=== PATIENT | female | born 1935 | race Caucasian/White ===

== ENCOUNTER 2016-12-19 10:05 | Inpatient (IN) | payer OTHER, MEDICARE ==
[~2016-12-19 10:05] MED LIST: CILO100T PO; FURO1TAB93 PO; GLYB1TAB51 PO; LISI-590 PO; OMEP20CA5 PO; POTA-243 PO; TOPR100T15 PO; ZOCO40TA PO
[2016-12-19 10:11] VITALS: BP 225/100; PULSE 80; RESP 26; O2SAT 94
[2016-12-19] MEDS ORDERED: NITROGLYCERIN 0.4 MG SL 25 TABS/BTL SL ONE (10:15)
[2016-12-19] MEDS ORDERED: ALLO300T2 PO (10:26)
[2016-12-19] MEDS ORDERED: AMLO2.5T PO (10:26)
[2016-12-19] MEDS ORDERED: ATOR40TA16 PO (10:26)
[2016-12-19] MEDS ORDERED: ASPI81TA81 PO (10:26)
[2016-12-19] MEDS ORDERED: CILO100T PO (10:26)
[2016-12-19] MEDS ORDERED: PRIM50TA5 PO (10:26)
[2016-12-19] MEDS ORDERED: PRIL20TA2 PO (10:26)
[2016-12-19] MEDS ORDERED: METF850T PO (10:26)
[2016-12-19] MEDS ORDERED: BETH25TA2 PO (10:26)
[2016-12-19] MEDS ORDERED: METO100T PO (10:26)
[2016-12-19] MEDS ORDERED: LISI-515 PO (10:26)
[2016-12-19] MEDS ORDERED: FURO20TA PO (10:26)
[2016-12-19] MEDS ORDERED: ASPIRIN 325 MG TAB PO ONE (10:30)
[2016-12-19] MEDS: NITROGLYCERIN 0.4 MG SL 25 TABS/BTL SL SCH ×3 (10:34→10:41)
[2016-12-19 10:40] VITALS: BP 188/82; PULSE 71; RESP 22; O2SAT 95
[2016-12-19 10:48] LABS: AUTOMATED NEUTROPHIL # 14.6 TH/MM3 (1.8-7.7); BASOPHIL % 0.3 % (0.0-2.0); EOSINOPHIL # 0.3 TH/MM3 (0-0.4); HEMATOCRIT 34.6 % (35.0-46.0); LYMPH % 9.8 % (9.0-44.0); LYMPHOCYTE # 1.7 TH/MM3 (1.0-4.8); MEAN CELL VOLUME 101.5 FL (80.0-100.0); MEAN CORPUSCULAR HGB CONC 31.5 % (32.0-36.0); MONO % 3.2 % (0.0-8.0); NEUT % 84.7 % (16.0-70.0); PLATELET COUNT 183 TH/MM3 (150-450); RED BLOOD COUNT 3.41 MIL/MM3 (4.00-5.30); RED CELL DISTRIBUTION WIDTH 19.7 % (11.6-17.2); WHITE BLOOD COUNT 17.3 TH/MM3 (4.0-11.0)
--- NOTE | 2016-12-19 10:48 | RADRPT ---
EXAM DATE/TIME: 12/19/2016 10:17 [place] COMPARISON: No previous studies available for comparison. INDICATIONS : Chest pain MEDICAL HISTORY : Cardiovascular disease. Hypertension SURGICAL HISTORY : CABG. ENCOUNTER: Initial ACUITY: 1 day PAIN SCORE: 8/10 LOCATION: chest FINDINGS: The patient is status post sternotomy. The heart size is upper limits of normal. The lungs are grossl y clear. No effusion is seen. CONCLUSION: No acute disease. Valdez Flowers MD on December 19, 2016 at 10:45 Board Certified Radiologist. This report was verified electronically.
[2016-12-19 10:53] LABS: HEMO FLAGS AUTO DIFF
[2016-12-19 10:56] LABS: APTT (PATIENT) 27.1 SEC (24.3-30.1); INTERNATIONAL NORMALIZED RATIO 0.9 RATIO; PROTHROMBIN TIME - PATIENT 10.1 SEC (9.8-11.6)
--- NOTE | 2016-12-19 11:01 | PD ---
HPI Chief Complaint: Cardiac Complaint Time Seen by Provider: 10:17 Travel History International Travel<30 days: No Contact w/Intl Traveler<30days: No Traveled to known affect area: No History of Present Illness HPI 81yo F with PMH of CAD s/p CABG, CHF presents to the ED with c/o sob since 7am today. States she has been having intermittent left sided chest pain as well. Chest pain is worst with breathing and feels like someone hitting it. Associated with nausea. Denies any fever, vomiting, abdominal pain, focal weakness and numbness. Pt always have bilateral lower extremity swelling and did not take her lasix today. Swelling is about the same. PFSH Past Medical History Cancer: No Cardiovascular Problems: Yes High Cholesterol: Yes Congestive Heart Failure: Yes Coronary Artery Disease: Yes Diabetes: Yes Patient Takes Glucophage: Yes Diminished Hearing: No Glaucoma: No Hepatitis: No Hiatal Hernia: No Hypertension: Yes Respiratory: Yes Renal Failure: Yes (ckd) Thyroid Disease: No Past Surgical History Abdominal Surgery: No Cardiac Surgery: Yes (CABGX5) Ear Surgery: No Endocrine Surgery: No Eye Surgery: Yes (BILAT. CATARACT SX, BILAT BLEPH.) Genitourinary Surgery: Yes (FUSED BLADDER AND KIDNEY,) Gynecologic Surgery: Yes (HYSTERECTOMY,) Oral Surgery: No Thoracic Surgery: No Other Surgery: Yes Social History Alcohol Use: No Tobacco Use: Yes (STOPPED 6 YR. AGO, WAS SMOKING 1 PPD) Substance Use: No Allergies-Medications (Allergen,Severity, Reaction): Coded Allergies: codeine (Unverified Allergy, Severe, Hives, 11/16/16) RASH hydroxyzine (Unverified Allergy, Severe, HALLUCINATIONS, 11/16/16) Uncoded Allergies: CODEINE=RASH (Allergy, Unknown, 12/11/02) Reported Meds & Prescriptions Reported Meds & Active Scripts Active Reported Atorvastatin (Atorvastatin Calcium) 40 Mg Tab 40 Mg PO HS Amlodipine (Amlodipine Besylate) 2.5 Mg Tab 2.5 Mg PO DAILY Aspir-81 (Aspirin) 81 Mg Tabdr 81 Mg PO DAILY Primidone 50 Mg Tab 50 Mg PO BID Cilostazol 100 Mg Tab 100 Mg PO DAILY Allopurinol 300 Mg Tab 300 Mg PO DAILY Bethanechol 25 Mg Tab 37.5 Mg PO QID Lisinopril 20 Mg Tab 20 Mg PO DAILY Metformin (Metformin HCl) 850 Mg Tab 850 Mg PO BIDPC With meals Metoprolol Tartrate 100 Mg Tab 100 Mg PO BID Prilosec (Omeprazole Magnesium) 20 Mg Tab 20 Mg PO DAILY Furosemide 20 Mg Tab 20 Mg PO BID Review of Systems Except as stated in HPI: all other systems reviewed are Neg Physical Exam Narrative GENERAL: 81yo F in moderate distress. SKIN: Focused skin assessment warm/dry. HEAD: Atraumatic. Normocephalic. EYES: Pupils equal and round. No scleral icterus. No injection or drainage. ENT: No nasal bleeding or discharge. Mucous membranes pink and moist. NECK: Trachea midline. No JVD. CARDIOVASCULAR: Regular rate and rhythm. No murmur appreciated. RESPIRATORY: +accessory muscle use. Bilateral basilar crackles. GASTROINTESTINAL: Abdomen soft, non-tender, nondistended. No rebound tenderness or guarding. MUSCULOSKELETAL: No obvious deformities. No clubbing. No cyanosis. +Bilateral lower ext edema. NEUROLOGICAL: Awake and alert. No obvious cranial nerve deficits. Motor grossly within normal limits. Normal speech. PSYCHIATRIC: Appropriate mood and affect; insight and judgment normal. Data Data Last Documented VS Vital Signs Date Time Temp Pulse Resp B/P (MAP) Pulse Ox O2 Delivery O2 Flow Rate FiO2 12/19/16 10:40 71 22 188/82 (117) 95 Nasal Cannula 3.00 Orders Orders Nitroglycerin Sl (Nitrostat Sl) (12/19/16 10:15) Electrocardiogram (12/19/16 10:16) Basic Metabolic Panel (Bmp) (12/19/16 10:16) B-Type Natriuretic Peptide (12/19/16 10:16) Complete Blood Count With Diff (12/19/16 10:16) Magnesium (Mg) (12/19/16 10:16) Prothrombin Time / Inr (Pt) (12/19/16 10:16) Act Partial Throm Time (Ptt) (12/19/16 10:16) Troponin I (12/19/16 10:16) Chest, Single Ap (12/19/16 10:16) Aspirin (Aspirin) (12/19/16 10:30) Nitroglycerin Sl (Nitrostat Sl) (12/19/16 10:30) Furosemide Inj (Lasix Inj) (12/19/16 11:15) Morphine Inj (Morphine Inj) (12/19/16 11:30) Blood Culture (12/19/16 11:46) Lactic Acid Sepsis Protocol (12/19/16 11:46) Admit Order (Ed Use Only) (12/19/16 12:10) Labs Laboratory Tests Test 12/19/16 10:30 12/19/16 12:10 White Blood Count 17.3 TH/MM3 Red Blood Count 3.41 MIL/MM3 Hemoglobin 10.9 GM/DL Hematocrit 34.6 % Mean Corpuscular Volume 101.5 FL Mean Corpuscular Hemoglobin 32.0 PG Mean Corpuscular Hemoglobin Concent 31.5 % Red Cell Distribution Width 19.7 % Platelet Count 183 TH/MM3 Mean Platelet Volume 11.7 FL Neutrophils (%) (Auto) 84.7 % Lymphocytes (%) (Auto) 9.8 % Monocytes (%) (Auto) 3.2 % Eosinophils (%) (Auto) 2.0 % Basophils (%) (Auto) 0.3 % Neutrophils # (Auto) 14.6 TH/MM3 Lymphocytes # (Auto) 1.7 TH/MM3 Monocytes # (Auto) 0.6 TH/MM3 Eosinophils # (Auto) 0.3 TH/MM3 Basophils # (Auto) 0.0 TH/MM3 CBC Comment AUTO DIFF Differential Total Cells Counted 100 Neutrophils % (Manual) 73 % Band Neutrophils % 13 % Lymphocytes % 10 % Monocytes % 3 % Eosinophils % 1 % Neutrophils # (Manual) 14.9 TH/MM3 Differential Comment FINAL DIFF MANUAL Toxic Vacuolation PRESENT Platelet Estimate NORMAL Platelet Morphology Comment ENLARGED Keratocytes OCC Prothrombin Time 10.1 SEC Prothromb Time International Ratio 0.9 RATIO Activated Partial Thromboplast Time 27.1 SEC Blood Urea Nitrogen 28 MG/DL Creatinine 1.24 MG/DL Random Glucose 114 MG/DL Calcium Level 8.9 MG/DL Magnesium Level 1.6 MG/DL Sodium Level 136 MEQ/L Potassium Level 5.4 MEQ/L Chloride Level 107 MEQ/L Carbon Dioxide Level 22.2 MEQ/L Anion Gap 7 MEQ/L Estimat Glomerular Filtration Rate 42 ML/MIN Troponin I LESS THAN 0.02 NG/ML B-Type Natriuretic Peptide 157 PG/ML Lactic Acid Level 1.8 mmol/L MDM Medical Decision Making Medical Screen Exam Complete: Yes Emergency Medical Condition: Yes Interpretation(s) EKG: NSR 81bpm. Normal axis. No ST segment elevation or depression. Differential Diagnosis CHF exacerbation vs. ACS vs. pneumonia Narrative Course 81yo F with CHF, CAD here with sob and chest pain today. Clinically, impression is CHF exacerbation as pt is hypertensive and has crackles in her lungs. States she took her aspirin. Pt given sublingual nitro PRN chest pain and BP improved as well as her chest pain. Jet Blade Polisher is Dr. Rfuf. Pt is suppose to be on lasix 20mg BID and did not take her lasix today. Pt given lasix 40mg IV. Pt also given morphine 2mg IV for chest pain since she was still have chest pain and said morphine helped before. Labs reviewed, leukocytosis at 17.3, bandemia at 13%. BNP is only 157. Troponin negative. K : 5.4 but slightly hemolyzed. Lactic acid normal at 1.8. CXR showed no acute disease. Pt has high risk for ACS and will admit pt to hospitalist for chest pain and further work up of possible infection with bandemia present. I discussed with Dr. Faria who accepted the patient and initially asked me to order CT angio but later changed his mind and cancelled it. Diagnosis Primary Impression: Chest pain Qualified Codes: R07.9 - Chest pain, unspecified Admitting Information Admitting Physician Requests: it Lydia Bass DO Dec 19, 2016 11:01
[2016-12-19 11:05] LABS: ANION GAP 7 MEQ/L (5-15); BICARBONATE 22.2 MEQ/L (21.0-32.0); BLOOD UREA NITROGEN 28 MG/DL (7-18); CHLORIDE 107 MEQ/L (98-107); GLOMERULAR FILTRATION RATE 42 ML/MIN (>89); MAGNESIUM 1.6 MG/DL (1.5-2.5); POTASSIUM 5.4 MEQ/L (3.5-5.1); SODIUM (NA) 136 MEQ/L (136-145)
[2016-12-19] MEDS ORDERED: FUROSEMIDE 40 MG/4 ML VIAL IV PUSH ONE (11:15)
[2016-12-19 11:26] LABS: BANDS 13 % (0-6); EOSINOPHILS 1 % (0-4); NEUTROPHIL # MANUAL DIFF 14.9 TH/MM3 (1.8-7.7); POLYS (SEG NEUTROPHILS) 73 % (16-70); WBC DIFF SAMPLE 100
[2016-12-19 11:27] LABS: PLATELET ESTIMATE SMEAR NORMAL (NORMAL); PLATELET MORPHOLOGY ENLARGED (NORMAL); TOXIC VACUOLATION PRESENT (NONE SEEN)
[2016-12-19 11:28] LABS: KERATOCYTES OCC (NORMAL); SCAN/DIFF FINAL DIFF MANUAL
[2016-12-19] MEDS ORDERED: MORPHINE SULFATE 4 MG/ML INJ IV PUSH ONE (11:30)
--- NOTE | 2016-12-19 12:40 | EKG ---
Date Performed: 12/19/2016 Time Performed: 10:21:04 PTAGE: 81 years EKG: Sinus rhythm NORMAL ECG NO PREVIOUS TRACING DOCTOR: Romel Rutledge Interpretating Date/Time 12/19/2016 12:39:13
[2016-12-19] MEDS ORDERED: NALOXONE HCL 0.4 MG/ML AMP IV PUSH PRN (12:45)
[2016-12-19] MEDS ORDERED: BISACODYL 10 MG SUPP RECTAL PRN (13:00)
[2016-12-19] MEDS ORDERED: MAGNESIUM HYDROXIDE SUSP 30 ML CUP PO PRN (13:00)
[2016-12-19] MEDS ORDERED: LACTULOSE SYRUP 20 GM/30 ML CUP PO PRN (13:00)
[2016-12-19] MEDS ORDERED: SODIUM CHLORIDE 0.9% FLUSH 10 ML FLUSH IV FLUSH PRN (13:00)
[2016-12-19] MEDS ORDERED: SENNOSIDES 8.6 MG TAB PO PRN (13:00)
[2016-12-19] MEDS ORDERED: ACETAMINOPHEN 325 MG TAB PO PRN (13:00)
[2016-12-19] MEDS ORDERED: ONDANSETRON HCL 4 MG/2 ML VIAL IVP PRN (13:00)
--- NOTE | 2016-12-19 13:30 | HHI.HP ---
[facility]ician Tk Rendon MD Admission Diagnosis Chest pain Diagnoses: (1) Chest pain (2) Diabetes mellitus (3) Hypertension Travel History International Travel<30 Days: No Contact w/Intl Traveler <30 Da: No Traveled to Known Affected Are: No Sepsis Criteria SIRS Criteria (2 or more): RR > 20 or PaCO2 < 32, WBC > 64368, < 4000 or > 10 % bands Sepsis Criteria (SIRS+source): Infect source susp/known History of Present Illness Written by Steffany Mariano, acting as scribe for Dr. Faria on 12/19/16 at 13:16. This note was transcribed by scribe DANAY Brink. I, Dr. Patricio Faria personally performed the history, physical exam, and medical decision making; and confirmed the accuracy of the information in the transcribed note. Authenticated by Dr. Patricio Faria on 12/19/16 at 22:38. Ms. Gustafson is an 81-year-old female patient with a known medical history of hypertension, type 2 diabetes mellitus, and CABG x 5 who presented to the ED with complaints of chest discomfort. 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 She says this discomfort was pressure-like in nature, intermittent, denies any radiation of pain to neck or back, denies any associate diaphoresis, and admits to associated nausea and vomiting. Does state that she has been experiencing similar chest discomfort intermittently for the past 2 days, with it coming and going without any recognizable aggravating or relieving factors. Patient states she left work this morning, took her usual medications and laid down to rest. While resting she complaint of continued chest discomfort characterized by a "choking sensation" and "inability to breath ". She states she called her granddaughter who brought her to the ED. She also states that she has noticed several episodes of dyspnea for the past 2 weeks. This dyspnea usually occurs at rest without reason. Denies any recent illness including fever, chills, cough, abdominal pain, diarrhea. Does state she believes she passed a kidney stone within the past week, complaints of burning and pain on urination. Review of Systems Constitutional: DENIES: Fever, Chills, Dizziness Eyes: DENIES: Blurred vision, Vision loss Respiratory: COMPLAINS OF: Shortness of breath, DENIES: Cough Cardiovascular: COMPLAINS OF: Chest pain, Palpitations, Lower Extremity Edema Gastrointestinal: COMPLAINS OF: Nausea, Vomiting, DENIES: Abdominal pain, Constipation, Diarrhea Genitourinary: COMPLAINS OF: Dysuria Except as stated in HPI: all other systems reviewed are Neg Past Family Social History Past Medical History Type 2 diabetes mellitus Hypertension, chronic Arthritis Dyslipidemia CHF CAD CKD Past Surgical History CABG x 5 Bilateral cataracts Hysterectomy Kidney/bladder surgery Back surgery Knee replacement Reported Medications Active Reported Atorvastatin (Atorvastatin Calcium) 40 Mg Tab 40 Mg PO HS Amlodipine (Amlodipine Besylate) 2.5 Mg Tab 2.5 Mg PO DAILY Aspir-81 (Aspirin) 81 Mg Tabdr 81 Mg PO DAILY Primidone 50 Mg Tab 50 Mg PO BID Cilostazol 100 Mg Tab 100 Mg PO DAILY Allopurinol 300 Mg Tab 300 Mg PO DAILY Bethanechol 25 Mg Tab 37.5 Mg PO QID Lisinopril 20 Mg Tab 20 Mg PO DAILY Metformin (Metformin HCl) 850 Mg Tab 850 Mg PO BIDPC With meals Metoprolol Tartrate 100 Mg Tab 100 Mg PO BID Prilosec (Omeprazole Magnesium) 20 Mg Tab 20 Mg PO DAILY Furosemide 20 Mg Tab 20 Mg PO BID Allergies: Coded Allergies: codeine (Unverified Allergy, Severe, Hives, 11/16/16) RASH hydroxyzine (Unverified Allergy, Severe, HALLUCINATIONS, 11/16/16) Uncoded Allergies: CODEINE=RASH (Allergy, Unknown, 12/11/02) Active Ordered Medications Current Medications Medications (Trade) Dose Ordered Sig/Reagan Route Start Time Stop Time Status Last Admin (NS Flush) 2 ml UNSCH PRN IV FLUSH 12/19/16 13:00 (NS Flush) 2 ml BID IV FLUSH 12/19/16 21:00 (Tylenol) 650 mg Q4H PRN PO 12/19/16 13:00 (Zofran Inj) 4 mg Q6H PRN IVP 12/19/16 13:00 (Narcan Inj) 0.4 mg UNSCH PRN IV PUSH 12/19/16 12:45 (Misa-Colace) 1 tab BID PO 12/19/16 21:00 (Milk Of Magnesia Liq) 30 ml Q12H PRN PO 12/19/16 13:00 (Senokot) 17.2 mg Q12H PRN PO 12/19/16 13:00 (Dulcolax Supp) 10 mg DAILY PRN RECTAL 12/19/16 13:00 (Lactulose Liq) 30 ml DAILY PRN PO 12/19/16 13:00 Family History Maternal medical history significant for CHF. Paternal medical history significant for lung cancer. Sister of ovarian cancer. Brother of lung cancer. Social History Denies any current use of tobacco or alcohol. She used to smoke 1 PPD but quit about 6 years ago. Physical Exam Vital Signs Vital Signs Date Time Temp Pulse Resp B/P (MAP) Pulse Ox O2 Delivery O2 Flow Rate FiO2 12/19/16 10:40 71 22 188/82 (117) 95 Nasal Cannula 3.00 12/19/16 10:15 96 Nasal Cannula 3.00 12/19/16 10:11 80 26 225/100 (141) 94 Physical Exam GENERAL: This is a well-nourished, well-developed female patient, lying in bed on 2 L NC in no apparent distress. SKIN: No ecchymoses or lesions. Warm and dry. Left lower extremity erythema noted, no open skin, no drainage, warm to touch, mild trace non pitting edema. HEENT: Atraumatic. Normocephalic.Pupils equal round and reactive. Extraocular motions intact. No scleral icterus. No injection or drainage. Nose without bleeding. Uvula midline. Airway patent. NECK: Trachea midline. No JVD or lymphadenopathy. Supple. CARDIOVASCULAR: Regular rate and rhythm. No gallops, or rubs. No murmur appreciated. RESPIRATORY: Clear to auscultation. Breath sounds equal bilaterally. No wheezes , rales, or rhonchi. GASTROINTESTINAL: Abdomen soft, non-tender, nondistended. No guarding. MUSCULOSKELETAL: Extremities without clubbing, cyanosis, or edema. No joint tenderness, effusion, or edema noted. NEUROLOGICAL: Awake and alert. Cranial nerves II through XII intact. Motor and sensory grossly within normal limits. Five out of 5 muscle strength in all muscle groups. Normal speech. Laboratory Laboratory Tests Test 12/19/16 10:30 12/19/16 12:10 White Blood Count 17.3 Red Blood Count 3.41 Hemoglobin 10.9 Hematocrit 34.6 Mean Corpuscular Volume 101.5 Mean Corpuscular Hemoglobin 32.0 Mean Corpuscular Hemoglobin Concent 31.5 Red Cell Distribution Width 19.7 Platelet Count 183 Mean Platelet Volume 11.7 Neutrophils (%) (Auto) 84.7 Lymphocytes (%) (Auto) 9.8 Monocytes (%) (Auto) 3.2 Eosinophils (%) (Auto) 2.0 Basophils (%) (Auto) 0.3 Neutrophils # (Auto) 14.6 Lymphocytes # (Auto) 1.7 Monocytes # (Auto) 0.6 Eosinophils # (Auto) 0.3 Basophils # (Auto) 0.0 CBC Comment AUTO DIFF Differential Total Cells Counted 100 Neutrophils % (Manual) 73 Band Neutrophils % 13 Lymphocytes % 10 Monocytes % 3 Eosinophils % 1 Neutrophils # (Manual) 14.9 Differential Comment FINAL DIFF MANUAL Toxic Vacuolation PRESENT Platelet Estimate NORMAL Platelet Morphology Comment ENLARGED Keratocytes OCC Prothrombin Time 10.1 Prothromb Time International Ratio 0.9 Activated Partial Thromboplast Time 27.1 Blood Urea Nitrogen 28 Creatinine 1.24 Random Glucose 114 Calcium Level 8.9 Magnesium Level 1.6 Sodium Level 136 Potassium Level 5.4 Chloride Level 107 Carbon Dioxide Level 22.2 Anion Gap 7 Estimat Glomerular Filtration Rate 42 Troponin I LESS THAN 0.02 B-Type Natriuretic Peptide 157 Lactic Acid Level 1.8 Date/Time Source Procedure Growth Status 12/19/16 12:15 Blood Peripheral Aerobic Blood Culture Pending Received 12/19/16 12:15 Blood Peripheral Anaerobic Blood Culture Pending Received Result Diagram: 12/19/16 1030 12/19/16 1030 Imaging Last Impressions Chest X-Ray 12/19/16 1016 Signed Impressions: Service Date/Time: Monday, December 19, 2016 10:17 - CONCLUSION: No acute disease. Valdez Flowers MD Septic Shock Reassessment Heart: Regular rate and rhythm Lungs: Clear Skin: Warm Peripheral Pulses: Bounding Right Radial Bounding Left Radial Capillary Refill: Brisk, <2 seconds Caprini VTE Risk Assessment Caprini VTE Risk Assessment: Mod/High Risk (score >= 2) Caprini Risk Assessment Model Point Value = 1 Point Value = 2 Point Value = 3 Point Value = 5 Age 41-60 Minor surgery BMI > 25 kg/m2 Swollen legs Varicose veins or History of unexplained or recurrent spontaneous Oral contraceptives or hormone replacement Sepsis (< 1 month) Serious lung disease, including pneumonia (< 1 month) Abnormal pulmonary function Acute myocardial infarction Congestive heart failure (< 1 month) History of inflammatory bowel disease Medical patient at bed rest Age 61-74 Arthroscopic surgery Major open surgery (> 45 min) Laparoscopic surgery (> 45 min) Malignancy Confined to bed (> 72 hours) Immobilizing plaster cast Central venous access Age >= 75 History of VTE Family history of VTE Factor V Leiden Prothrombin [id number] Lupus anticoagulant Anticardiolipin antibodies Elevated serum homocysteine Heparin-induced thrombocytopenia Other congenital or acquired thrombophilia Stroke (< 1 month) Elective arthroplasty Hip, pelvis, or leg fracture Acute spinal cord injury (< 1 month) Prophylaxis Regimen Total Risk Factor Score Risk Level Prophylaxis Regimen 0-1 Low Early ambulation 2 Moderate Order ONE of the following: *Sequential Compression Device (SCD) *Heparin 5000 units SQ BID 3-4 Higher Order ONE of the following medications: *Heparin 5000 units SQ TID *Enoxaparin/Lovenox 40 mg SQ daily (WT < 150 kg, CrCl > 30 mL/min) *Enoxaparin/Lovenox 30 mg SQ daily (WT < 150 kg, CrCl > 10-29 mL/min) *Enoxaparin/Lovenox 30 mg SQ BID (WT < 150 kg, CrCl > 30 mL/min) AND/OR *Sequential Compression Device (SCD) 5 or more Highest Order ONE of the following medications: *Heparin 5000 units SQ TID (Preferred with Epidurals) *Enoxaparin/Lovenox 40 mg SQ daily (WT < 150 kg, CrCl > 30 mL/min) *Enoxaparin/Lovenox 30 mg SQ daily (WT < 150 kg, CrCl > 10-29 mL/min) *Enoxaparin/Lovenox 30 mg SQ BID (WT < 150 kg, CrCl > 30 mL/min) AND *Sequential Compression Device (SCD) Assessment and Plan Problem List: (1) Accelerated hypertension ICD Code: I10 - Essential (primary) hypertension (2) SCAR (acute kidney injury) ICD Code: N17.9 - Acute kidney failure, unspecified (3) UTI (urinary tract infection) ICD Code: N39.0 - Urinary tract infection, site not specified Assessment and Plan Ms. Gustafson is an 81-year-old female patient with a known medical history of hypertension, type 2 diabetes mellitus, and CABG x 5 who presented to the ED with complaints of chest discomfort. EKG on presentation, NSR, HR 81, no ST segment changes, no arrhythmias. Given Morphine IV given x 1, Aspirin 325 mg PO x 1, Lasix 40 mg IV x 1, sublingual nitro x 1 in ED with improved chest pain. Lead Business Analyst is Dr. Ruff. Leukocytosis on presentation, 17.3. Probable unstable angina History of chronic congestive heart failure, unknown type History of CAD with CABG x 5 vessel bypass Hyperlipidemia - Initial troponin 0.02. Will follow serial troponin for ruling out purposes. - Morphine IV given x 1 in ED. Aspirin 325 mg PO x 1 given in ED. Lasix 40 mg IV x 1 given in ED. - EKG reviewed showing normal sinus rhythm, no ST changes noted, no arrhythmias present. Will order serial EKGs. Follow. - CXR reviewed with no acute disease. - Will obtain 2-D ECHO. No recent ECHO in EMR. Unknown type of CHF. Follow. BNP ordered, 157. - Consult placed to cardiology, Dr. Ruff known to patient. Appreciate input. - Will obtain lipid profile, continue home Atorvastatin. Follow. - Resume home aspirin, cilostazol, primidone and furosemide. - Continue supplemental O2 to keep sats > 92%. - CTA initially ordered in ED due to complaints of dyspnea. Will cancel due to possibility of patient undergoing cardiac catheterization depending on cardiology input. With presence of SCAR will also limit amount of contrast. Accelerated hypertension - BP elevated, systolic in the 180's-200's. Resume home BP meds, Lisinopril, amlodipine. Monitor blood pressure closely. Sepsis (WBC 17.3K, Resp 26, suspected infection UTI and/or left lower ext cellulitis). - Leukocytosis with mild bandemia suspect secondary to possible left lower leg cellulitis vs UTI - WBC 17.3 on presentation. Afebrile. Lactic acid 1.8. - Blood cultures ordered, sent and pending. Follow. - UA ordered and pending. Follow. - Follow clinically. Acute kidney injury: Creatinine 1.2 on presentation. Unknown baseline creatinine. Ensure hydration, place on NS @ 100 ml/hr. Will recheck BMP in am. Follow. Hyperkalemia: K 5.4 on presentation. Will give one time dose of concentrated Albuterol 10 mg. Monitor response. Follow BMP. Type 2 diabetes mellitus, chronic: Will place on ACCU checks ACHS, sliding scale , cover as needed. Monitor closely. Probable left lower extremity cellulitis: Rocephin started for UTI coverage, will also cover possible cellulitis. Will continue to monitor. Urinary tract infection: Dysuria complaints. Will order a UA with culture if indicated. Follow. Will start Rocephin IV empirically. Follow C&S Full code. [facility] 2 Midnight Certification Type: Admission for Inpatient Services Order for Inpatient Services The services are ordered in accordance with Medicare regulations or non- Medicare payer requirements, as applicable. In the case of services not specified as inpatient-only, they are appropriately provided as inpatient services in accordance with the 2-midnight benchmark. Estimated LOS (days): 2 2 days is the estimated time the patient will need to remain in the hospital, assuming treatment plan goals are met and no additional complications. Post-Hospital Plan: Not yet determined Problem Qualifiers (1) Chest pain: Qualified Codes: R07.9 - Chest pain, unspecified Steffany Mariano Dec 19, 2016 13:30 Puneet Faria DO Dec 19, 2016 22:48
[2016-12-19] MEDS ORDERED: RESP: ALBUTEROL CONC 2.5 MG/0.5 ML NEB NEB ONE (13:45)
[2016-12-19 13:52] VITALS: TEMP 98.1
[2016-12-19] MEDS ORDERED: DEXTROSE 50% IN WATER 50 ML VIAL(D50) IV PRN (14:30)
[2016-12-19] MEDS ORDERED: GLUCAGON 1 MG/ML VIAL OTHER PRN (14:30)
[2016-12-19] MEDS ORDERED: PILL SPLITTER OTHER PRN (15:00)
[2016-12-19 15:43] VITALS: O2SAT 96
--- NOTE | 2016-12-19 15:52 | MB ---
cc: REESE SUE ALAN S. M.D. BARTHOLOMEW, BETH A. MD DATE OF CONSULTATION: 12/19/2016. I have reviewed office and hospital records. The patient is a pleasant 81-year-old woman I am seeing for chest pain and shortness of breath. The patient had quintuple bypass surgery in 1998 and apparently had a stent to the vein graft to the RCA in 2001. SPECT nuclear 10/15 was normal. An echocardiogram showed normal LV function with mild MR / TR. The patient notes mild stable dyspnea on exertion for the last two months. She also has chronic moderate bilateral calf claudication. She does note over the last two months that she is having increasing episodes of substernal tightness which usually lasts minutes and today may have lasted longer. It is not necessarily pleuritic or positional and can come on at any time, particularly after exertion. She also notes some localized anterior chest tenderness. She has no other cardiac symptomatology. Of note is the fact that she has had hematuria for the last two to three weeks. PAST MEDICAL HISTORY: 1. Hypertension. 2. Diabetes. 3. Chronic kidney disease IV. 4. Hyperlipidemia. 5. A 3.1 cm abdominal aortic aneurysm. 6. Peripheral vascular disease with bilateral occlusions of the superficial femoral arteries. 7. Moderate right internal carotid stenosis. 8. Gout. 9. Esophageal reflux. 10. Monoclonal gammopathy. 11. COPD. 12. Right knee replacement. 13. Hysterectomy. 14. Lumbar back surgery. 15. Appendectomy. 16. Cholecystectomy. 17. Bilateral cataracts. ALLERGIES: 1. CODEINE. 2. HYDROXYZINE. 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 She is a former smoker and does not drink. FAMILY HISTORY: Noncontributory. MEDICATION LIST: Reviewed. She has taken them this morning. At this point in time, the patient has minimal left anterior chest tenderness but no other symptoms. EKG shows sinus rhythm and is normal. Chest x-ray with no acute disease. LAB WORK: White count elevated at 17.3 with macrocytosis. There is mild anemia with hematocrit of 34.6, platelet count normal. PT / PTT normal. Potassium 5.4, creatinine 1.24, glucose 114. Troponin negative. BNP minimally elevated at 157. PHYSICAL EXAMINATION: GENERAL: On exam, she is significantly hypertensive but this is improving. VITAL SIGNS: Afebrile. SKIN: There are no xanthelasma and oropharyngeal mucosa normal. CHEST: Clear. CARDIOVASCULAR: JVD normal. S1, S2 with a 2/6 early peaking systolic ejection murmur at the base. ABDOMEN: Benign except for an increased abdominal aortic pulsation. EXTREMITIES: No cyanosis, clubbing or edema. PULSES: Carotids with soft bilateral bruits. Radials 1 to 2+. Femorals 1 to 2+ with bilateral bruits. Pedals trace. NEUROLOGIC: She was not ambulated. PROBLEM LIST: 1. Chest discomfort. The patient has some localized tenderness but I am concerned with her risk factors and the fact that there is an exertional component that this is unstable angina. 2. Severe hypertension. 3. Diabetes. 4. Hyperlipidemia. 5. Heart murmur. 6. Peripheral vascular and carotid disease. 7. Abdominal aortic aneurysm. 8. Chronic kidney disease IV. 9. Monoclonal gammopathy with anemia. 10. Elevated white count. RECOMMENDATIONS: 1. She is being started on low-dose Lovenox which at this point in time is appropriate given her hematuria and anemia. 2. Will start her on topical nitrates. We will continue home medication and certainly her blood pressure risk factors need to be aggressively treated 3. Echocardiogram to assess ventricular and valvular function. 4. Low cholesterol / salt / diabetic diet. 5. The patient may need catheterization to better evaluate her coronary status. Further recommendations will be followed by Dr. Ruff tomorrow. All questions have been answered. I have also stated she should not be working as a security supervisor at this point in time given her age and multiple medical issues. MD EDELMIRA Mcdonald/ROSA /2:44 PM /3:38 PM
[2016-12-19] MEDS: NITROGLYCERIN 2% OINT 1 GM PACKET TOPICAL SCH ×2 (16:00→16:50)
[2016-12-19] MEDS: SODIUM CHLOR 0.9% 1000 ML INJ 1,000 ML IV SCH (16:00)
[2016-12-19] MEDS: cefTRIAXone INJ 1,000 MG in SODIUM CHLORIDE 0.9% INJ 100 ML IV SCH (16:00)
[2016-12-19] MEDS: ENOXAPARIN SODIUM 40 MG/0.4 ML SYRINGE SQ SCH (16:00)
[2016-12-19 16:23] VITALS: BP 168/74
[2016-12-19] MEDS: INSULIN ASPART SUPPLEMENTAL SCALE SQ SCH ×2 (17:00→21:18)
[2016-12-19] MEDS: BETHANECHOL CHL 25 MG TAB PO SCH ×2 (18:00→21:17)
[2016-12-19] MEDS: FUROSEMIDE 20 MG TAB PO SCH (18:00)
--- NOTE | 2016-12-19 19:12 | EKG ---
Date Performed: 12/19/2016 Time Performed: 18:43:34 PTAGE: 81 years EKG: Sinus rhythm WITH SHORT CT INTERVAL NONSPECIFIC T-WAVE ABNORMALITY BORDERLINE ECG PREVIOUS TRACING : 12/19/2016 15.03 No significant change from previous tracing noted. DOCTOR: Romel Rutledge Interpretating Date/Time 12/19/2016 19:10:24
--- NOTE | 2016-12-19 19:14 | EKG ---
Date Performed: 12/19/2016 Time Performed: 15:03:25 PTAGE: 81 years EKG: Sinus rhythm NONSPECIFIC T-WAVE ABNORMALITY BORDERLINE ECG PREVIOUS TRACING : 12/19/2016 10.21 No significant change from previous tracing noted. DOCTOR: Romel Rutledge Interpretating Date/Time 12/19/2016 19:13:06
[2016-12-19 20:00] VITALS: BP 152/65; PULSE 88; PULSE 90; RESP 20; TEMP 97.7; O2SAT 95
[2016-12-19] MEDS: SODIUM CHLORIDE 0.9% FLUSH 10 ML FLUSH IV FLUSH SCH (21:00)
[2016-12-19] MEDS: ATORVASTATIN 40 MG TAB PO SCH (21:17)
[2016-12-19] MEDS: METOPROLOL TARTRATE 100 MG TAB PO SCH (21:17)
[2016-12-19] MEDS: DOCUSATE SODIUM 50 MG/SENNA 8.6 MG TAB PO SCH (21:18)
[2016-12-19] MEDS: PRIMIDONE 50 MG TAB PO SCH (21:44)
[2016-12-19 22:08] LABS: POTASSIUM 3.8 MEQ/L (3.5-5.1)
[2016-12-20] VITALS (7 sets, daily range): BP systolic 139–162; BP diastolic 60–98; PULSE 61–80; RESP 18–21; TEMP 96.8–98.3; O2SAT 92–98
[2016-12-20] MEDS: NITROGLYCERIN 2% OINT 1 GM PACKET TOPICAL SCH ×5 (00:03→18:00)
[2016-12-20] MEDS: SODIUM CHLOR 0.9% 1000 ML INJ 1,000 ML IV SCH ×3 (00:03→21:13)
--- NOTE | 2016-12-20 07:56 | PD.CARD.PN ---
Subjective Subjective Remarks PT still with mild SHOB Objective Medications Current Medications Medications (Trade) Dose Ordered Sig/Reagan Route Start Time Stop Time Status Last Admin (NS Flush) 2 ml UNSCH PRN IV FLUSH 12/19/16 13:00 (NS Flush) 2 ml BID IV FLUSH 12/19/16 21:00 (Tylenol) 650 mg Q4H PRN PO 12/19/16 13:00 (Zofran Inj) 4 mg Q6H PRN IVP 12/19/16 13:00 (Narcan Inj) 0.4 mg UNSCH PRN IV PUSH 12/19/16 12:45 (Misa-Colace) 1 tab BID PO 12/19/16 21:00 12/19/16 21:18 (Milk Of Magnesia Liq) 30 ml Q12H PRN PO 12/19/16 13:00 (Senokot) 17.2 mg Q12H PRN PO 12/19/16 13:00 (Dulcolax Supp) 10 mg DAILY PRN RECTAL 12/19/16 13:00 (Lactulose Liq) 30 ml DAILY PRN PO 12/19/16 13:00 Ceftriaxone Sodium 1000 mg/ Sodium Chloride 100 ml @ 200 mls/hr Q24H IV 12/19/16 16:00 12/19/16 16:00 (D50w (Vial) Inj) 50 ml UNSCH PRN IV 12/19/16 14:30 (Glucagon Inj) 1 mg UNSCH PRN OTHER 12/19/16 14:30 (NovoLOG SUPPLEMENTAL SCALE) 1 ACHS SLIDING SCALE SQ 12/19/16 17:00 12/19/16 21:18 Sodium Chloride 1,000 ml @ 100 mls/hr Q10H IV 12/19/16 14:30 12/20/16 00:03 (Lovenox Inj) 40 mg Q24H SQ 12/19/16 15:00 12/19/16 16:00 (Nitroglycerin 2% Oint) 1 inch Q6HR TOPICAL 12/19/16 14:45 12/20/16 00:03 (Norvasc) 2.5 mg DAILY PO 12/20/16 09:00 (Ecotrin Ec) 81 mg DAILY PO 12/20/16 09:00 (Lipitor) 40 mg HS PO 12/19/16 21:00 12/19/16 21:17 (Urecholine) 37.5 mg QID PO 12/19/16 18:00 12/19/16 21:17 (Pletal) 100 mg DAILY PO 12/20/16 09:00 (Lasix) 20 mg BID@0900,1800 PO 12/19/16 18:00 12/19/16 18:00 (Prinivil) 20 mg DAILY PO 12/20/16 09:00 (Lopressor) 100 mg BID PO 12/19/16 21:00 12/19/16 21:17 (Mysoline) 50 mg BID PO 12/19/16 21:00 12/19/16 21:44 (Protonix) 20 mg DAILY PO 12/20/16 09:00 (Pill Splitter) 1 ea UNSCH PRN OTHER 12/19/16 15:00 Vital Signs / I&O Vital Signs Date Time Temp Pulse Resp B/P (MAP) Pulse Ox O2 Delivery O2 Flow Rate FiO2 12/20/16 04:00 Nasal Cannula 3.00 12/20/16 04:00 97.3 64 20 146/71 (96) 97 12/20/16 00:00 97.3 65 18 139/60 (86) 97 12/20/16 00:00 Nasal Cannula 3.00 12/19/16 20:00 97.7 90 20 152/65 (94) 95 12/19/16 20:00 88 12/19/16 20:00 Nasal Cannula 3.00 12/19/16 16:23 84 20 168/74 (105) 97 12/19/16 15:43 96 Nasal Cannula 3.00 12/19/16 13:52 98.1 12/19/16 12:39 Nasal Cannula 3.00 12/19/16 10:40 71 22 188/82 (117) 95 Nasal Cannula 3.00 12/19/16 10:15 96 Nasal Cannula 3.00 12/19/16 10:11 80 26 225/100 (141) 94 I/O 12/19/16 12/19/16 12/19/16 12/20/16 12/20/16 12/20/16 07:00 15:00 23:00 07:00 15:00 23:00 Intake Total 100 ml 220 ml Output Total 1575 ml Balance 100 ml -1355 ml Intake Oral 220 ml IV Total 100 ml Output Urine Total 1575 ml Physical Exam Current Medications Medications (Trade) Dose Ordered Sig/Reagan Route Start Time Stop Time Status Last Admin (NS Flush) 2 ml UNSCH PRN IV FLUSH 12/19/16 13:00 (NS Flush) 2 ml BID IV FLUSH 12/19/16 21:00 (Tylenol) 650 mg Q4H PRN PO 12/19/16 13:00 (Zofran Inj) 4 mg Q6H PRN IVP 12/19/16 13:00 (Narcan Inj) 0.4 mg UNSCH PRN IV PUSH 12/19/16 12:45 (Misa-Colace) 1 tab BID PO 12/19/16 21:00 12/19/16 21:18 (Milk Of Magnesia Liq) 30 ml Q12H PRN PO 12/19/16 13:00 (Senokot) 17.2 mg Q12H PRN PO 12/19/16 13:00 (Dulcolax Supp) 10 mg DAILY PRN RECTAL 12/19/16 13:00 (Lactulose Liq) 30 ml DAILY PRN PO 12/19/16 13:00 Ceftriaxone Sodium 1000 mg/ Sodium Chloride 100 ml @ 200 mls/hr Q24H IV 12/19/16 16:00 12/19/16 16:00 (D50w (Vial) Inj) 50 ml UNSCH PRN IV 12/19/16 14:30 (Glucagon Inj) 1 mg UNSCH PRN OTHER 12/19/16 14:30 (NovoLOG SUPPLEMENTAL SCALE) 1 ACHS SLIDING SCALE SQ 12/19/16 17:00 12/19/16 21:18 Sodium Chloride 1,000 ml @ 100 mls/hr Q10H IV 12/19/16 14:30 12/20/16 00:03 (Lovenox Inj) 40 mg Q24H SQ 12/19/16 15:00 12/19/16 16:00 (Nitroglycerin 2% Oint) 1 inch Q6HR TOPICAL 12/19/16 14:45 12/20/16 00:03 (Norvasc) 2.5 mg DAILY PO 12/20/16 09:00 (Ecotrin Ec) 81 mg DAILY PO 12/20/16 09:00 (Lipitor) 40 mg HS PO 12/19/16 21:00 12/19/16 21:17 (Urecholine) 37.5 mg QID PO 12/19/16 18:00 12/19/16 21:17 (Pletal) 100 mg DAILY PO 12/20/16 09:00 (Lasix) 20 mg BID@0900,1800 PO 12/19/16 18:00 12/19/16 18:00 (Prinivil) 20 mg DAILY PO 12/20/16 09:00 (Lopressor) 100 mg BID PO 12/19/16 21:00 12/19/16 21:17 (Mysoline) 50 mg BID PO 12/19/16 21:00 12/19/16 21:44 (Protonix) 20 mg DAILY PO 12/20/16 09:00 (Pill Splitter) 1 ea UNSCH PRN OTHER 12/19/16 15:00 Laboratory Laboratory Tests Test 12/19/16 10:30 12/19/16 12:10 12/19/16 15:05 12/19/16 21:34 White Blood Count 17.3 TH/MM3 Red Blood Count 3.41 MIL/MM3 Hemoglobin 10.9 GM/DL Hematocrit 34.6 % Mean Corpuscular Volume 101.5 FL Mean Corpuscular Hemoglobin 32.0 PG Mean Corpuscular Hemoglobin Concent 31.5 % Red Cell Distribution Width 19.7 % Platelet Count 183 TH/MM3 Mean Platelet Volume 11.7 FL Neutrophils (%) (Auto) 84.7 % Lymphocytes (%) (Auto) 9.8 % Monocytes (%) (Auto) 3.2 % Eosinophils (%) (Auto) 2.0 % Basophils (%) (Auto) 0.3 % Neutrophils # (Auto) 14.6 TH/MM3 Lymphocytes # (Auto) 1.7 TH/MM3 Monocytes # (Auto) 0.6 TH/MM3 Eosinophils # (Auto) 0.3 TH/MM3 Basophils # (Auto) 0.0 TH/MM3 CBC Comment AUTO DIFF Differential Total Cells Counted 100 Neutrophils % (Manual) 73 % Band Neutrophils % 13 % Lymphocytes % 10 % Monocytes % 3 % Eosinophils % 1 % Neutrophils # (Manual) 14.9 TH/MM3 Differential Comment FINAL DIFF MANUAL Toxic Vacuolation PRESENT Platelet Estimate NORMAL Platelet Morphology Comment ENLARGED Keratocytes OCC Prothrombin Time 10.1 SEC Prothromb Time International Ratio 0.9 RATIO Activated Partial Thromboplast Time 27.1 SEC Blood Urea Nitrogen 28 MG/DL Creatinine 1.24 MG/DL Random Glucose 114 MG/DL Calcium Level 8.9 MG/DL Magnesium Level 1.6 MG/DL Sodium Level 136 MEQ/L Potassium Level 5.4 MEQ/L 3.8 MEQ/L Chloride Level 107 MEQ/L Carbon Dioxide Level 22.2 MEQ/L Anion Gap 7 MEQ/L Estimat Glomerular Filtration Rate 42 ML/MIN Troponin I LESS THAN 0.02 NG/ML LESS THAN 0.02 NG/ML LESS THAN 0.02 NG/ML B-Type Natriuretic Peptide 157 PG/ML Lactic Acid Level 1.8 mmol/L Imaging Last 72 hours Impressions Chest X-Ray 12/19/16 1016 Signed Impressions: Service Date/Time: Monday, December 19, 2016 10:17 - CONCLUSION: No acute disease. Valdez Flowers MD Assessment and Plan Problem List: (1) CHF (congestive heart failure) ICD Codes: I50.9 - Heart failure, unspecified Plan: eitiology_ Ischemia vs HTN vs cardiorenal vsother -continue lasix -fluid and sodium restrictions -ECHO (2) Hypertension ICD Codes: I10 - Essential (primary) hypertension Plan: Uncontrolled HTN- better today, may be etiology to CP -agree with amlodipine (3) Chest pain ICD Codes: R07.9 - Chest pain, unspecified Plan: disha -nuc when stable, given hx CABG (4) UTI (urinary tract infection) ICD Codes: N39.0 - Urinary tract infection, site not specified (5) Diabetes mellitus ICD Codes: E11.9 - Type 2 diabetes mellitus without complications Problem Qualifiers (1) Chest pain: Qualified Codes: R07.9 - Chest pain, unspecified Nadeen Ruff MD Dec 20, 2016 07:56
[2016-12-20] MEDS: INSULIN ASPART SUPPLEMENTAL SCALE SQ SCH ×4 (08:00→21:06)
[2016-12-20 08:49] LABS: AUTOMATED NEUTROPHIL # 7.8 TH/MM3 (1.8-7.7); BASOPHIL # 0.1 TH/MM3 (0-0.2); BASOPHIL % 0.6 % (0.0-2.0); EOSINOPHIL # 0.5 TH/MM3 (0-0.4); EOSINOPHIL % 4.6 % (0.0-4.0); HEMATOCRIT 30.1 % (35.0-46.0); HEMO FLAGS DIFF FINAL; LYMPH % 19.3 % (9.0-44.0); LYMPHOCYTE # 2.2 TH/MM3 (1.0-4.8); MEAN CORPUSCULAR HEMOGLOBIN 31.9 PG (27.0-34.0); MEAN CORPUSCULAR HGB CONC 31.6 % (32.0-36.0); MONO % 7.7 % (0.0-8.0); NEUT % 67.8 % (16.0-70.0); PLATELET COUNT 140 TH/MM3 (150-450); RED BLOOD COUNT 2.98 MIL/MM3 (4.00-5.30); WHITE BLOOD COUNT 11.5 TH/MM3 (4.0-11.0)
[2016-12-20] MEDS: PRIMIDONE 50 MG TAB PO SCH ×2 (08:50→21:07)
[2016-12-20] MEDS: DOCUSATE SODIUM 50 MG/SENNA 8.6 MG TAB PO SCH ×2 (08:51→21:08)
[2016-12-20] MEDS: METOPROLOL TARTRATE 100 MG TAB PO SCH ×2 (08:51→21:08)
[2016-12-20] MEDS: PANTOPRAZOLE SOD 20 MG DELAYED RELEASE TAB PO SCH (08:51)
[2016-12-20] MEDS: ASPIRIN EC 81 MG TABEC PO SCH (08:53)
[2016-12-20] MEDS ORDERED: LISINOPRIL 20 MG TAB PO SCH (09:00)
[2016-12-20] MEDS ORDERED: amLODIPine BESYLATE 5 MG TAB PO SCH (09:00)
[2016-12-20] MEDS: CILOSTAZOL 100 MG TAB PO SCH ×2 (09:00→14:59)
[2016-12-20] MEDS: SODIUM CHLORIDE 0.9% FLUSH 10 ML FLUSH IV FLUSH SCH ×2 (09:02→21:09)
[2016-12-20] MEDS: FUROSEMIDE 20 MG TAB PO SCH (09:02)
[2016-12-20] MEDS: BETHANECHOL CHL 25 MG TAB PO SCH ×4 (09:02→21:07)
[2016-12-20 09:30] LABS: BICARBONATE 23.5 MEQ/L (21.0-32.0)
[2016-12-20 09:34] LABS: HDL CHOLESTEROL 32.5 MG/DL (40.0-60.0)
--- NOTE | 2016-12-20 13:26 | HHI.PR ---
Subjective Remarks Follow-up for chest pain, urinary tract infection. Patient is currently doing well. Currently on 2 L of oxygen. No fever or chills. Chest pain is minimal. Objective Vitals Vital Signs Date Time Temp Pulse Resp B/P (MAP) Pulse Ox O2 Delivery O2 Flow Rate FiO2 12/20/16 08:00 97.8 63 20 151/66 (94) 98 12/20/16 04:00 Nasal Cannula 3.00 12/20/16 04:00 97.3 64 20 146/71 (96) 97 12/20/16 00:00 97.3 65 18 139/60 (86) 97 12/20/16 00:00 Nasal Cannula 3.00 12/19/16 20:00 97.7 90 20 152/65 (94) 95 12/19/16 20:00 88 12/19/16 20:00 Nasal Cannula 3.00 12/19/16 16:23 84 20 168/74 (105) 97 12/19/16 15:43 96 Nasal Cannula 3.00 12/19/16 13:52 98.1 I/O 12/19/16 12/19/16 12/19/16 12/20/16 12/20/16 12/20/16 07:00 15:00 23:00 07:00 15:00 23:00 Intake Total 100 ml 220 ml Output Total 1575 ml Balance 100 ml -1355 ml Intake Oral 220 ml IV Total 100 ml Output Urine Total 1575 ml Result Diagram: 12/20/16 0748 12/20/16 0748 Imaging Last Impressions Chest X-Ray 12/19/16 1016 Signed Impressions: Service Date/Time: Monday, December 19, 2016 10:17 - CONCLUSION: No acute disease. Valdez Flowers MD Objective Remarks GENERAL: Alert, oriented 3, NAD. SKIN: Warm and dry. HEAD: Normocephalic. EYES: No scleral icterus. No injection or drainage. NECK: Supple, trachea midline. No JVD or lymphadenopathy. CARDIOVASCULAR: Regular rate and rhythm without murmurs, gallops, or rubs. RESPIRATORY: Breath sounds equal bilaterally. No accessory muscle use. GASTROINTESTINAL: Abdomen soft, non-tender, nondistended. MUSCULOSKELETAL: No cyanosis. Trace edema in the lower extremities. BACK: Nontender without obvious deformity. No CVA tenderness. Procedures None A/P Problem List: (1) Accelerated hypertension ICD Code: I10 - Essential (primary) hypertension (2) SCAR (acute kidney injury) ICD Code: N17.9 - Acute kidney failure, unspecified (3) UTI (urinary tract infection) ICD Code: N39.0 - Urinary tract infection, site not specified Assessment and Plan Ms. Gustafson is an 81-year-old female patient with a known medical history of hypertension, type 2 diabetes mellitus, and CABG x 5 who presented to the ED with complaints of chest discomfort. EKG on presentation, NSR, HR 81, no ST segment changes, no arrhythmias. Given Morphine IV given x 1, Aspirin 325 mg PO x 1, Lasix 40 mg IV x 1, sublingual nitro x 1 in ED with improved chest pain. Film Spooler is Dr. Ruff. Leukocytosis on presentation, 17.3. Chest pain History of chronic congestive heart failure, unknown type History of CAD with CABG x 5 vessel bypass Hyperlipidemia - Troponins X 3 negative. - BNP 157. Echo pending. Lexiscan in progress. - Consult placed to cardiology, Dr. Ruff known to patient. Appreciate input. - continue home Atorvastatin. Reviewed Lipid profile. LDL 38. - Continue aspirin, cilostazol, primidone. - Will change Lasix to Torsemide 10mg BID. - Continue supplemental O2 to keep sats > 90%. Wean off O2 if possible. Accelerated hypertension - Blood pressure is better controlled. Currently 140s to 150s systolic. - Currently on amlodipine 2.5 mg, lisinopril 20 mg, metoprolol tartrate 100 mg twice a day. - Increase Amlodipine to 5mg Qday. Sepsis (WBC 17.3K, Resp 26, suspected infection UTI and/or left lower ext cellulitis). - Leukocytosis with mild bandemia suspect secondary to possible left lower leg cellulitis vs UTI - WBC 17.3 --> 11.5K. - Blood cultures no growth so far. Urine culture pending. Acute kidney injury - Creatinine 1.24 on admission. Improved to 0.90. Hyperkalemia: K 5.4 on presentation. 4.0 on 12/20/2016. Type 2 diabetes mellitus, chronic: Continue sliding scale insulin. Probable left lower extremity cellulitis - continue ceftriaxone 1 g daily. Urinary tract infection: Dysuria complaints. Urinalysis and possible culture pending. Continue ceftriaxone 1 g by mouth daily. Full code. Lovenox Depending on the urine culture as well as Lexiscan findings, patient could potentially be discharged on 12/21/2016. Puneet Faria DO Dec 20, 2016 1:26 pm
[2016-12-20 13:29] LABS: BACTERIA, URINE RARE /hpf; BLOOD, URINE NEG (NEG); GLUCOSE,URINE NEG (NEG); KETONE, URINE NEG (NEG); NITRITE,URINE NEG (NEG); PH, URINE 5.5 (5.0-8.5); SQUAMOUS EPITHELIAL CELL URINE 1 /hpf (0-5); URINE COLOR LIGHT-YELLOW (YELLW/STRAW)
[2016-12-20 13:35] LABS: COMMENT (UR) CULT NOT INDICATED; CULTURE IF INDICATED CULT NOT INDICATED
[2016-12-20] MEDS: ENOXAPARIN SODIUM 40 MG/0.4 ML SYRINGE SQ SCH (15:09)
--- NOTE | 2016-12-20 16:04 | ECHRPT ---
Indication: CHEST PAIN CONCLUSIONS Normal left ventricular size. Wall thickness is normal. The left ventricular systolic function is normal with an estimated ejection fraction in the range of 60-65%. Mild mitral valve regurgitation. Aortic valve sclerosis is present. BP: / HR: Rhythm: Sinus MEASUREMENTS (Male / Female) Normal Values Technical Quality:Good 2D ECHO LV Diastolic Diameter PLAX 3.1 cm 4.2 - 5.9 / 3.9 - 5.3 cm LV Systolic Diameter PLAX 2.4 cm IVS Diastolic Thickness 1.3 cm 0.6 - 1.0 / 0.6 - 0.9 cm LVPW Diastolic Thickness 0.6 cm 0.6 - 1.0 / 0.6 - 0.9 cm LV Relative Wall Thickness 0.6 LA Systolic Diameter LX 4.1 cm 3.0 - 4.0 / 2.7 - 3.8 cm DOPPLER MR Peak Velocity 436.0 cm/s MR Peak Gradient 76.0 mmHg Mitral E Point Velocity 91.8 cm/s Mitral A Point Velocity 74.0 cm/s Mitral E to A Ratio 1.2 TR Peak Velocity 227.0 cm/s TR Peak Gradient 20.6 mmHg FINDINGS LEFT VENTRICLE Normal left ventricular size. Wall thickness is normal. The left ventricular systolic function is normal with an estimated ejection fraction in the range of 60-65%. RIGHT VENTRICLE Normal right ventricular size and systolic function. LEFT ATRIUM The left atrial size is normal. RIGHT ATRIUM The right atrial size is normal. ATRIAL SEPTUM Normal atrial septal thickness without atrial level shunting by limited color doppler interrogation. AORTA The aortic root and proximal ascending aorta are normal in size on limited imaging. MITRAL VALVE Mild mitral valve regurgitation. AORTIC VALVE Aortic valve sclerosis is present. TRICUSPID VALVE Structurally normal tricuspid valve. No tricuspid valve stenosis or regurgitation. PULMONARY VALVE The pulmonary valve is not well visualized. VESSELS The inferior vena cava is normal in size. PERICARDIUM No pericardial effusion. Christal Brown MD, FACC (Electronically Signed) Final Date:20 December 2016 16:03
[2016-12-20] MEDS: cefTRIAXone INJ 1,000 MG in SODIUM CHLORIDE 0.9% INJ 100 ML IV SCH (17:45)
[2016-12-20] MEDS ORDERED: TORSEMIDE 5 MG TAB PO SCH (18:00)
[2016-12-20] MEDS: ATORVASTATIN 40 MG TAB PO SCH (21:07)
[2016-12-21] VITALS: BP 145/65; PULSE 55; RESP 19; TEMP 97.4; O2SAT 97
[2016-12-21 04:00] VITALS: BP 155/68; PULSE 55; RESP 19; TEMP 97.5; O2SAT 97
[2016-12-21] MEDS: SODIUM CHLOR 0.9% 1000 ML INJ 1,000 ML IV SCH (05:42)
[2016-12-21] MEDS: NITROGLYCERIN 2% OINT 1 GM PACKET TOPICAL SCH ×2 (05:43)
--- NOTE | 2016-12-21 07:13 | PD.CARD.PN ---
Subjective Subjective Remarks Pt without complaints Objective Medications Current Medications Medications (Trade) Dose Ordered Sig/Reagan Route Start Time Stop Time Status Last Admin (NS Flush) 2 ml UNSCH PRN IV FLUSH 12/19/16 13:00 (NS Flush) 2 ml BID IV FLUSH 12/19/16 21:00 12/20/16 21:09 (Tylenol) 650 mg Q4H PRN PO 12/19/16 13:00 (Zofran Inj) 4 mg Q6H PRN IVP 12/19/16 13:00 (Narcan Inj) 0.4 mg UNSCH PRN IV PUSH 12/19/16 12:45 (Misa-Colace) 1 tab BID PO 12/19/16 21:00 12/20/16 21:08 (Milk Of Magnesia Liq) 30 ml Q12H PRN PO 12/19/16 13:00 (Senokot) 17.2 mg Q12H PRN PO 12/19/16 13:00 (Dulcolax Supp) 10 mg DAILY PRN RECTAL 12/19/16 13:00 (Lactulose Liq) 30 ml DAILY PRN PO 12/19/16 13:00 Ceftriaxone Sodium 1000 mg/ Sodium Chloride 100 ml @ 200 mls/hr Q24H IV 12/19/16 16:00 12/20/16 17:45 (D50w (Vial) Inj) 50 ml UNSCH PRN IV 12/19/16 14:30 (Glucagon Inj) 1 mg UNSCH PRN OTHER 12/19/16 14:30 (NovoLOG SUPPLEMENTAL SCALE) 1 ACHS SLIDING SCALE SQ 12/19/16 17:00 12/20/16 21:06 Sodium Chloride 1,000 ml @ 100 mls/hr Q10H IV 12/19/16 14:30 12/21/16 05:42 (Lovenox Inj) 40 mg Q24H SQ 12/19/16 15:00 12/20/16 15:09 (Nitroglycerin 2% Oint) 1 inch Q6HR TOPICAL 12/19/16 14:45 12/20/16 00:03 (Ecotrin Ec) 81 mg DAILY PO 12/20/16 09:00 12/20/16 08:53 (Lipitor) 40 mg HS PO 12/19/16 21:00 12/20/16 21:07 (Urecholine) 37.5 mg QID PO 12/19/16 18:00 12/20/16 21:07 (Pletal) 100 mg DAILY PO 12/20/16 09:00 12/20/16 14:59 (Prinivil) 20 mg DAILY PO 12/20/16 09:00 12/20/16 08:51 (Lopressor) 100 mg BID PO 12/19/16 21:00 12/20/16 21:08 (Mysoline) 50 mg BID PO 12/19/16 21:00 12/20/16 21:07 (Protonix) 20 mg DAILY PO 12/20/16 09:00 12/20/16 08:51 (Pill Splitter) 1 ea UNSCH PRN OTHER 12/19/16 15:00 (Demadex) 10 mg BID@18 PO 12/20/16 18:00 12/20/16 18:54 (Norvasc) 5 mg DAILY PO 12/21/16 09:00 Vital Signs / I&O Vital Signs Date Time Temp Pulse Resp B/P (MAP) Pulse Ox O2 Delivery O2 Flow Rate FiO2 12/21/16 04:00 Nasal Cannula 1.00 12/21/16 04:00 97.5 55 19 155/68 (97) 97 12/21/16 00:00 97.4 55 19 145/65 (91) 97 12/20/16 20:13 67 12/20/16 20:00 Room Air 12/20/16 20:00 96.8 80 21 162/98 (119) 96 12/20/16 16:00 98.1 61 20 162/72 (102) 97 12/20/16 12:00 98.3 63 20 151/70 (97) 92 12/20/16 08:00 97.8 63 20 151/66 (94) 98 I/O 12/20/16 12/20/16 12/20/16 12/21/16 12/21/16 12/21/16 06:59 14:59 22:59 06:59 14:59 22:59 Intake Total 220 ml 580 ml 1088 ml Output Total 1575 ml 1600 ml 900 ml Balance -1355 ml -1020 ml 188 ml Intake Oral 220 ml 480 ml 240 ml IV Total 100 ml 848 ml Output Urine Total 1575 ml 1600 ml 900 ml # Voids 2 # Bowel Movements 1 0 Physical Exam GENERAL: Well developed, well nourished. No acute distress. HEENT: Jugular venous pressure is normal. CHEST: Lungs clear to auscultation bilaterally. Unlabored respiratory effort. CARDIAC: Regular rate and rhythm without S3, S4, or murmur. ABDOMEN: Soft, nontender, no hepatosplenomegaly. Bowel sounds present. EXTREMITIES: No clubbing, cyanosis, or edema. Laboratory Laboratory Tests Test 12/20/16 07:48 12/20/16 12:45 White Blood Count 11.5 TH/MM3 Red Blood Count 2.98 MIL/MM3 Hemoglobin 9.5 GM/DL Hematocrit 30.1 % Mean Corpuscular Volume 101.0 FL Mean Corpuscular Hemoglobin 31.9 PG Mean Corpuscular Hemoglobin Concent 31.6 % Red Cell Distribution Width 20.0 % Platelet Count 140 TH/MM3 Mean Platelet Volume 11.3 FL Neutrophils (%) (Auto) 67.8 % Lymphocytes (%) (Auto) 19.3 % Monocytes (%) (Auto) 7.7 % Eosinophils (%) (Auto) 4.6 % Basophils (%) (Auto) 0.6 % Neutrophils # (Auto) 7.8 TH/MM3 Lymphocytes # (Auto) 2.2 TH/MM3 Monocytes # (Auto) 0.9 TH/MM3 Eosinophils # (Auto) 0.5 TH/MM3 Basophils # (Auto) 0.1 TH/MM3 CBC Comment DIFF FINAL Differential Comment Blood Urea Nitrogen 20 MG/DL Creatinine 0.90 MG/DL Random Glucose 110 MG/DL Calcium Level 8.2 MG/DL Sodium Level 139 MEQ/L Potassium Level 4.0 MEQ/L Chloride Level 109 MEQ/L Carbon Dioxide Level 23.5 MEQ/L Anion Gap 7 MEQ/L Estimat Glomerular Filtration Rate 60 ML/MIN Triglycerides Level 96 MG/DL Cholesterol Level 90 MG/DL LDL Cholesterol 38 MG/DL HDL Cholesterol 32.5 MG/DL Cholesterol/HDL Ratio 2.76 RATIO Urine Color LIGHT-YELLOW Urine Turbidity CLEAR Urine pH 5.5 Urine Specific Arnold 1.004 Urine Protein NEG mg/dL Urine Glucose (UA) NEG mg/dL Urine Ketones NEG mg/dL Urine Occult Blood NEG Urine Nitrite NEG Urine Bilirubin NEG Urine Urobilinogen LESS THAN 2.0 MG/DL Urine Leukocyte Esterase NEG Urine RBC 1 /hpf Urine WBC LESS THAN 1 /hpf Urine Squamous Epithelial Cells 1 /hpf Urine Bacteria RARE /hpf Microscopic Urinalysis Comment CULT NOT INDICATED Imaging Last 72 hours Impressions Chest X-Ray 12/19/16 1016 Signed Impressions: Service Date/Time: Monday, December 19, 2016 10:17 - CONCLUSION: No acute disease. Valdez Flowers MD Assessment and Plan Problem List: (1) CHF (congestive heart failure) ICD Codes: I50.9 - Heart failure, unspecified Plan: eitiology_ Ischemia vs HTN vs cardiorenal vs other -d/c IVF, change torsemide to spironolactone -fluid and sodium restrictions -ECHO with normal EF -consider d/c tomorrow if stable (2) Hypertension ICD Codes: I10 - Essential (primary) hypertension Plan: HTN- better today, may be etiology to CP -increase nelson (3) Chest pain ICD Codes: R07.9 - Chest pain, unspecified Plan: disha -nuc pending (4) UTI (urinary tract infection) ICD Codes: N39.0 - Urinary tract infection, site not specified (5) Diabetes mellitus ICD Codes: E11.9 - Type 2 diabetes mellitus without complications Problem Qualifiers (1) Chest pain: Qualified Codes: R07.9 - Chest pain, unspecified Nadeen Ruff MD Dec 21, 2016 07:12
[2016-12-21 08:00] VITALS: BP_SYST 133; BP_SYST 179; BP_DIAS 65; BP_DIAS 77; PULSE 60; PULSE 63; RESP 20; TEMP 97.4; TEMP 98.1; O2SAT 95; O2SAT 97
[2016-12-21] MEDS: INSULIN ASPART SUPPLEMENTAL SCALE SQ SCH ×2 (08:00→11:19)
[2016-12-21] MEDS ORDERED: LISINOPRIL 20 MG TAB PO ONE (08:00)
[2016-12-21] MEDS: CILOSTAZOL 100 MG TAB PO SCH (08:39)
[2016-12-21] MEDS: PRIMIDONE 50 MG TAB PO SCH (08:39)
[2016-12-21] MEDS: ASPIRIN EC 81 MG TABEC PO SCH (08:40)
[2016-12-21] MEDS: PANTOPRAZOLE SOD 20 MG DELAYED RELEASE TAB PO SCH (08:40)
[2016-12-21] MEDS: DOCUSATE SODIUM 50 MG/SENNA 8.6 MG TAB PO SCH (08:40)
[2016-12-21] MEDS: METOPROLOL TARTRATE 100 MG TAB PO SCH (08:40)
[2016-12-21] MEDS: BETHANECHOL CHL 25 MG TAB PO SCH (08:41)
[2016-12-21] MEDS: SODIUM CHLORIDE 0.9% FLUSH 10 ML FLUSH IV FLUSH SCH (08:42)
[2016-12-21] MEDS ORDERED: LISINOPRIL 20 MG TAB PO SCH (09:00)
[2016-12-21] MEDS ORDERED: SPIRONOLACTONE 25 MG TAB PO SCH (09:00)
[2016-12-21] MEDS ORDERED: amLODIPine BESYLATE 5 MG TAB PO SCH (09:00)
[2016-12-21] MEDS ORDERED: REGADENOSON INJ 0.4 MG/5 ML SYR ONE (09:37)
[2016-12-21 12:00] VITALS: BP 148/68; PULSE 64; RESP 20; TEMP 97.1; O2SAT 94
--- NOTE | 2016-12-21 12:01 | RADRPT ---
EXAM DATE/TIME: 12/20/2016 09:41 [place] COMPARISON: No previous studies available for comparison. INDICATIONS : Congestive heart failure. Coronary artery disease. DOSE: 30.0 mCi Tc99m Myoview at stress. 30.1 mCi Tc99m Myoview at rest. 0.4 mg Lexiscan STRESS SYMPTOMS: Shortness of breath. EJECTION FRACTION: > 70% MEDICAL HISTORY : Hypertension. Diabetes mellitus type 2. Smoking history. SURGICAL HISTORY : CABG Hysterectomy. ENCOUNTER: Initial ACUITY: 1 day PAIN SCALE: 3/10 LOCATION: Bilateral chest TECHNIQUE: The patient underwent pharmacologic stress with infusion of prescribed dose. Continuous ECG tracing was monitored during stress. Gated SPECT imaging was performed after stress and conventional SPECT i maging was performed at rest. The examination was performed on a SPECT/CT scanner, both attenuation and non-corrected datasets were reviewed. FINDINGS: DISTRIBUTION: The maximum perfused segment at stress is in the septal wall. PERFUSION STUDY: The pattern of perfusion at stress is within normal limits. GATED STUDY: There is intact wall motion and thickening without hypokinetic or dyskinetic segments. CONCLUSION: 1. No significant reversibility to suggest ischemia. 2. Normal wall motion with ejection fraction greater than 70%. RISK CATEGORY: Low (<1% Annual Mortality Rate) Michael Hunt MD on December 21, 2016 at 11:58 Board Certified Radiologist. This report was verified electronically.
[2016-12-21] MEDS ORDERED: amLODIPine BESYLATE 5 MG TAB PO ONE (12:15)
[2016-12-21] MEDS ORDERED: AMLO5 PO (13:47)
[2016-12-21] MEDS ORDERED: SPIR25 PO (13:47)
[2016-12-21] MEDS ORDERED: MACR100C2 PO (13:47)
[2016-12-21] MEDS ORDERED: CLON.5 PO (13:49)
--- NOTE | 2016-12-21 13:50 | HHI.DS ---
Discharge Summary Admission Date Dec 19, 2016 at 12:11 Discharge Date: Dec 21, 2016 Admitting Diagnosis Chest pain (1) Accelerated hypertension ICD Code: I10 - Essential (primary) hypertension (2) SCAR (acute kidney injury) ICD Code: N17.9 - Acute kidney failure, unspecified (3) UTI (urinary tract infection) ICD Code: N39.0 - Urinary tract infection, site not specified Procedures None Brief History - From Admission Ms. Gustafson is an 81-year-old female patient with a known medical history of hypertension, type 2 diabetes mellitus, and CABG x 5 who presented to the ED with complaints of chest discomfort. 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 She says this discomfort was pressure-like in nature, intermittent, denies any radiation of pain to neck or back, denies any associate diaphoresis, and admits to associated nausea and vomiting. Does state that she has been experiencing similar chest discomfort intermittently for the past 2 days, with it coming and going without any recognizable aggravating or relieving factors. Patient states she left work this morning, took her usual medications and laid down to rest. While resting she complaint of continued chest discomfort characterized by a "choking sensation" and "inability to breath ". She states she called her granddaughter who brought her to the ED. She also states that she has noticed several episodes of dyspnea for the past 2 weeks. This dyspnea usually occurs at rest without reason. Denies any recent illness including fever, chills, cough, abdominal pain, diarrhea. Does state she believes she passed a kidney stone within the past week, complaints of burning and pain on urination. CBC/BMP: 12/20/16 0748 12/20/16 0748 Significant Findings Laboratory Tests Test 12/19/16 10:30 12/19/16 12:10 12/19/16 15:05 12/19/16 21:34 White Blood Count 17.3 TH/MM3 (4.0-11.0) Red Blood Count 3.41 MIL/MM3 (4.00-5.30) Hemoglobin 10.9 GM/DL (11.6-15.3) Hematocrit 34.6 % (35.0-46.0) Mean Corpuscular Volume 101.5 FL (80.0-100.0) Mean Corpuscular Hemoglobin Concent 31.5 % (32.0-36.0) Red Cell Distribution Width 19.7 % (11.6-17.2) Mean Platelet Volume 11.7 FL (7.0-11.0) Neutrophils (%) (Auto) 84.7 % (16.0-70.0) Neutrophils # (Auto) 14.6 TH/MM3 (1.8-7.7) Neutrophils % (Manual) 73 % (16-70) Band Neutrophils % 13 % (0-6) Neutrophils # (Manual) 14.9 TH/MM3 (1.8-7.7) Toxic Vacuolation PRESENT (NONE SEEN) Platelet Morphology Comment ENLARGED (NORMAL) Keratocytes OCC (NORMAL) Blood Urea Nitrogen 28 MG/DL (7-18) Creatinine 1.24 MG/DL (0.50-1.00) Random Glucose 114 MG/DL (74-106) Potassium Level 5.4 MEQ/L (3.5-5.1) Estimat Glomerular Filtration Rate 42 ML/MIN (>89) Troponin I LESS THAN 0.02 NG/ML LESS THAN 0.02 NG/ML LESS THAN 0.02 NG/ML B-Type Natriuretic Peptide 157 PG/ML (0-100) Test 12/20/16 07:48 12/20/16 12:45 White Blood Count 11.5 TH/MM3 (4.0-11.0) Red Blood Count 2.98 MIL/MM3 (4.00-5.30) Hemoglobin 9.5 GM/DL (11.6-15.3) Hematocrit 30.1 % (35.0-46.0) Mean Corpuscular Volume 101.0 FL (80.0-100.0) Mean Corpuscular Hemoglobin Concent 31.6 % (32.0-36.0) Red Cell Distribution Width 20.0 % (11.6-17.2) Platelet Count 140 TH/MM3 (150-450) Mean Platelet Volume 11.3 FL (7.0-11.0) Eosinophils (%) (Auto) 4.6 % (0.0-4.0) Neutrophils # (Auto) 7.8 TH/MM3 (1.8-7.7) Eosinophils # (Auto) 0.5 TH/MM3 (0-0.4) Blood Urea Nitrogen 20 MG/DL (7-18) Random Glucose 110 MG/DL (74-106) Calcium Level 8.2 MG/DL (8.5-10.1) Chloride Level 109 MEQ/L (98-107) Estimat Glomerular Filtration Rate 60 ML/MIN (>89) Cholesterol Level 90 MG/DL (120-200) HDL Cholesterol 32.5 MG/DL (40.0-60.0) Urine Bacteria RARE /hpf (NONE) Imaging Last Impressions Myocardial Perfusion Scan Nuc Med 12/20/16 0000 Signed Impressions: Service Date/Time: Tuesday, December 20, 2016 09:41 - CONCLUSION: 1. No significant reversibility to suggest ischemia. 2. Normal wall motion with ejection fraction greater than 70%%. RISK CATEGORY: Low (<1%% Annual Mortality Rate) Michael Hunt MD Chest X-Ray 12/19/16 1016 Signed Impressions: Service Date/Time: Monday, December 19, 2016 10:17 - CONCLUSION: No acute disease. Valdez Flowers MD PE at Discharge GENERAL: Alert, oriented 3, NAD. SKIN: Warm and dry. HEAD: Normocephalic. EYES: No scleral icterus. No injection or drainage. NECK: Supple, trachea midline. No JVD or lymphadenopathy. CARDIOVASCULAR: Regular rate and rhythm without murmurs, gallops, or rubs. RESPIRATORY: Breath sounds equal bilaterally. No accessory muscle use. GASTROINTESTINAL: Abdomen soft, non-tender, nondistended. MUSCULOSKELETAL: No cyanosis. Trace edema in the lower extremities. BACK: Nontender without obvious deformity. No CVA tenderness. Pt update on day of discharge Patient is doing well. No chest pain, SOB, fever, chills. She is ambulating well , on room air. Discussed with Cardiology around 1:30PM on 12/21/2016. Cardiology is okay with discharging patient today 12/21/2016. Hospital Course Ms. Gustafson is an 81-year-old female patient with a known medical history of hypertension, type 2 diabetes mellitus, and CABG x 5 who presented to the ED with complaints of chest discomfort. EKG on presentation, NSR, HR 81, no ST segment changes, no arrhythmias. Given Morphine IV given x 1, Aspirin 325 mg PO x 1, Lasix 40 mg IV x 1, sublingual nitro x 1 in ED with improved chest pain. Coater Helper is Dr. Ruff. Leukocytosis on presentation, 17.3. Chest pain History of chronic congestive heart failure, unknown type History of CAD with CABG x 5 vessel bypass Hyperlipidemia - Troponins X 3 negative. - BNP 157. Echo and Lexiscan did not show any significant findings. - Consult placed to cardiology, Dr. Ruff. Discussed with Cardiology prior to discharge. Okay to discharge from Cardiology standpoint. - continue home Atorvastatin. Reviewed Lipid profile. LDL 38. - Continue aspirin, cilostazol, primidone. - Cardiology changed diuretics to Spironolactone. Accelerated hypertension - Blood pressure is better controlled. - [id number], lisinopril 20 mg, metoprolol tartrate 100 mg twice a day. Sepsis (WBC 17.3K, Resp 26, suspected infection UTI and/or left lower ext cellulitis). Urinary tract infection - WBC 17.3 --> 11.5K. - Blood cultures no growth so far. - Clinically, patient's symptoms were consistent with UTI. However, perhaps abx was started prior to UA, UA did not indicate active infection. We will d/c patient on Macrobid for 5 days. Acute kidney injury - Creatinine 1.24 on admission. Improved to 0.90. Hyperkalemia: K 5.4 on presentation. 4.0 on 12/20/2016. Type 2 diabetes mellitus, chronic: Continue sliding scale insulin. Full code. Lovenox Pt Condition on Discharge: Good Discharge Disposition: Discharge Home Discharge Time: > 30 minutes Discharge Instructions DIET: Follow Instructions for: Heart Healthy Diet Activities you can perform: Regular-No Restrictions Follow up Referrals: PCP Follow-up - 1 Week New Orders: BASIC METABOLIC PROF - 1 Week New Medications: Clonazepam (Klonopin) 0.5 Mg Tab 0.5 MG PO TID PRN for ANXIETY AND/OR AGITATION, #30 TAB 0 Refills Nitrofurantoin Monohydrate Macrocrystals (Macrobid) 100 Mg Cap 100 MG PO BID for Infection, #10 CAP 0 Refills Amlodipine (Norvasc) 5 Mg Tab 10 MG PO DAILY for Blood Pressure Management, #30 TAB Spironolactone (Aldactone) 25 Mg Tab 25 MG PO DAILY for Heart, #30 TAB Continued Medications: Allopurinol (Allopurinol) 300 Mg Tab 300 MG PO DAILY for Gout, #30 TAB [address] (Aspir-81) 81 Mg Tabdr 81 MG PO DAILY Atorvastatin (Atorvastatin) 40 Mg Tab 40 MG PO HS for Cholesterol Management, #30 TAB 0 Refills Bethanechol (Bethanechol) 25 Mg Tab 37.5 MG PO QID for Urinary Symptom Managemen, TAB 0 Refills Cilostazol (Cilostazol) 100 Mg Tab 100 MG PO DAILY for INTERMITTENT CLAUDICATION, TAB 0 Refills Lisinopril (Lisinopril) 20 Mg Tab 20 MG PO DAILY, #30 TAB 0 Refills Metformin (Metformin) 850 Mg Tab 850 MG PO BIDPC for Blood Sugar Management, TAB 0 Refills With meals Metoprolol Tartrate (Metoprolol Tartrate) 100 Mg Tab 100 MG PO BID, #60 TAB 0 Refills Omeprazole Magnesium (Prilosec) 20 Mg Tab 20 MG PO DAILY Primidone (Primidone) 50 Mg Tab 50 MG PO BID for Control Seizures, #60 TAB 0 Refills Discontinued Medications: Amlodipine (Amlodipine) 2.5 Mg Tab 2.5 MG PO DAILY for Blood Pressure Management, #30 TAB 0 Refills Furosemide (Furosemide) 20 Mg Tab 20 MG PO BID, #60 TAB 0 Refills Puneet Faria DO Dec 21, 2016 13:50
[2016-12-22] MEDS ORDERED: amLODIPine BESYLATE 5 MG TAB PO SCH (09:00)
== END 2016-12-21 14:54 | disposition home or self-care (01) | DRG 872 ==
LOC: NEPC 10:05 → NEDA 12:11 → N04B 17:46
PROVIDERS: ADMIT Hospitalist; ATTEND Hospitalist
DX: A41.9 Sepsis, unspecified organism (principal); E11.22 Type 2 diabetes mellitus with diabetic chronic kidney disease; N17.9 Acute kidney failure, unspecified; N18.4 Chronic kidney disease, stage 4 (severe); I13.0 Hypertensive heart and chronic kidney disease with heart failure and stage 1 through stage 4 chronic kidney disease, or unspecified chronic kidney disease; I50.9 Heart failure, unspecified; L03.116 Cellulitis of left lower limb; N39.0 Urinary tract infection, site not specified; E87.5 Hyperkalemia; I65.21 Occlusion and stenosis of right carotid artery; I25.10 Atherosclerotic heart disease of native coronary artery without angina pectoris; E78.5 Hyperlipidemia, unspecified; F41.9 Anxiety disorder, unspecified; M10.9 Gout, unspecified; I71.4 Abdominal aortic aneurysm, without rupture; K21.9 Gastro-esophageal reflux disease without esophagitis; Z95.1 Presence of aortocoronary bypass graft; Z79.82 Long term (current) use of aspirin; Z87.891 Personal history of nicotine dependence; Z79.84 Long term (current) use of oral hypoglycemic drugs
CPT/HCPCS: 71010; 76937; 78452; 80048; 80061; 81001; 82948; 83605; 83735; 83880; 84132; 84484; 85007; 85025; 85027; 85610; 85730; 87040; 93005; 93017; 93306; 94664; 96374; 96375; A9502; J0696; J1650; J1815; J1940; J2270; J2785; J7030; J7611

== ENCOUNTER → 2017-02-10 | Outpatient (CLI) | payer OTHER ==
[~2017-02-10] MED LIST changes: +ALLO300T2 PO; +AMLO5 PO; +ASPI81TA81 PO; +ATOR40TA16 PO; +BETH25TA2 PO; +CLON.5 PO; -FURO1TAB93 PO; -GLYB1TAB51 PO; +LISI-515 PO; -LISI-590 PO; +MACR100C2 PO; +METF850T PO; +METO100T PO; -OMEP20CA5 PO; -POTA-243 PO; +PRIL20TA2 PO; +PRIM50TA5 PO; +SPIR25 PO; -TOPR100T15 PO; -ZOCO40TA PO
--- NOTE | 2017-02-18 10:08 | RSPPFT ---
DATE OF PROCEDURE: 02/10/17 COMMENTS: VOLUMES DYNAMIC: FVC and FEV1 low normal. STATIC: TLC low normal; FRC and RV normal. FLOWS: FEV1% and FEF 25-75 normal. DIFFUSION: Moderately reduced. FLOW VOLUME LOOP: Terminal airflow obstruction. IMPRESSION: Low normal lung volumes and possible mild terminal airflow obstruction with a mild increase in airways resistance. There is also a moderate reduction in diffusion. There is no improvement post-bronchodilator.
== END ==
LOC: PHRSP 10:09
PROVIDERS: ATTEND Internal Medicine
DX: J44.9 Chronic obstructive pulmonary disease, unspecified (principal)
CPT/HCPCS: 94060; 94620; 94726; 94729